=== PATIENT | male | born 1970 | race Two or more races ===

== ENCOUNTER 2018-03-18 19:26 | Emergency (ER) | payer SELFPAY ==
[~2018-03-18] VITALS: Ht 180.3 cm; Wt 83.8 kg
[2018-03-18 19:40] VITALS: BP 151/85
== END 2018-03-18 19:59 | disposition left against medical advice (07) ==
LOC: ED 19:33
DX: R05 Cough (principal); R51 Headache; Z53.21 Procedure and treatment not carried out due to patient leaving prior to being seen by health care provider

== ENCOUNTER 2020-10-19 11:09 | Emergency (ER) | payer MEDICARE, OTHER ==
[~2020-10-19] VITALS: Ht 177.8 cm; Wt 78.0 kg
[2020-10-19] MEDS ORDERED: KETOROLAC 30 MG/1 ML ONE (11:41)
[2020-10-19] MEDS ORDERED: ACETAMINOPHEN 325 MG TABLET ONE (11:41)
[2020-10-19] MEDS ORDERED: CYCLOBENZAPRINE 10 MG TABLET ONE (11:42)
--- NOTE | 2020-10-19 11:51 | NUR ---
Pt here for L sided CP X 3 weeks. Worse with cough. Describes pain as "a muscle tear". Denies SOB. Has some fatigue. Medicated per ERP orders.
[2020-10-19] MEDS ORDERED: KETOROLAC 30 MG/1 ML IM ONE (12:00)
[2020-10-19] MEDS ORDERED: ACETAMINOPHEN 325 MG TABLET PO ONE (12:00)
[2020-10-19] MEDS ORDERED: CYCLOBENZAPRINE 10 MG TABLET PO ONE (12:00)
[2020-10-19 12:19] LABS: BASOPHILS % (AUTO) 1 % (0-1); EOSINOPHILS % (AUTO) 1 % (1-7); LYMPHOCYTES % (AUTO) 18 % (22-44); MEAN CORPUSCULAR HEMOGLOBIN 31.9 pg (27.5-34.5); MEAN CORPUSCULAR HGB CONC 34.2 g/dL (33.2-36.2); MEAN PLATELET VOLUME 8.8 fL (7.4-10.4); MONOCYTES % (AUTO) 6 % (2-9); NEUTROPHILS % (AUTO) 75 % (42-75); PLATELET COUNT 192 x10^3/uL (130-400); RED BLOOD COUNT 5.57 x10^6/uL (4.38-5.82); RED CELL DISTRIBUTION WIDTH 13.8 % (9.4-14.8)
[2020-10-19 12:20] LABS: MD NO
[2020-10-19 12:27] LABS: ALBUMIN 4.1 g/dL (3.4-5.0); ANION GAP 7 mmol/L (5-15); CALCIUM 9.1 mg/dL (8.5-10.1); CHLORIDE 105 mmol/L (98-107)
[2020-10-19 12:33] LABS: ALANINE AMINOTRANSFERASE 18 U/L (12-78); ALKALINE PHOSPHATASE 101 U/L (45-117); BILIRUBIN,TOTAL 0.6 mg/dL (0.2-1.0); CREATININE 0.98 mg/dL (0.7-1.3); TOTAL PROTEIN 8.5 g/dL (6.4-8.2); TROPONIN I < 0.015 ng/mL (0.000-0.045)
--- NOTE | 2020-10-19 12:36 | NUR ---
Pt states pain resolved. No obvious disttress. VS updated.
[2020-10-19 13:06] VITALS: BP 135/95
== END 2020-10-19 13:08 | disposition home or self-care (01) ==
LOC: ED 12:36
DX: R07.89 Other chest pain (principal); R11.0 Nausea; R30.0 Dysuria
CPT/HCPCS: 36415; 71045; 80053; 84484; 85025; 93005; 96372; 99285; J1885